=== PATIENT | female | born 1995 | race Caucasian/White ===

== ENCOUNTER 2021-11-24 22:10 | Observation (INO) | payer SELFPAY ==
[2021-11-24 22:10] VITALS: BMI 41.6
[2021-11-24 22:23] VITALS: BMI 41.5
[2021-11-24 23:00] VITALS: BP 142/91; PULSE 81; RESP 16; TEMP 36.6; O2SAT 98
[2021-11-24] MEDS: 0.9% Saline Lock 10 ML Syringe IV (23:14)
[2021-11-24] MEDS: 0.9% Normal Saline 1,000 ML 75 ML IV (23:15)
[2021-11-24] MEDS: Morphine 2 MG/ML Syringe IV (23:47)
[2021-11-25] VITALS (9 sets, daily range): BP systolic 103–139; BP diastolic 70–95; PULSE 69–93; RESP 14–16; TEMP 36.5–37; O2SAT 95–99
[2021-11-25] MEDS: Morphine 2 MG/ML Syringe IV ×3 (04:34→19:23)
--- NOTE | 2021-11-25 07:35 | HP.PCM_ITS ---
HPI - General General Date of Admission: 11/24/21 Chief Complaint: Right kidney stone HPI Narrative ZULAY BETTENCOURT, is a 26 F who presents 7 mm stone in the distal right ureter she was transferred from an outside emergency room was not been able to pass a stone with IV pain medicine she is now in better control of her pain and will plan for surgical intervention later today per availability of the operating room. [facility] Medical History (Updated 11/25/21 @ 07:[address] William Tenorio MD) Kidney stones no medical history Home Medications ciprofloxacin HCl 500 mg tablet (Cipro) 500 mg PO BID #6 tabs 11/25/21 [Rx Last Taken Unknown] oxycodone-acetaminophen 5 mg-325 mg tablet 1 tab PO Q6H PRN pain 7 days #14 tabs 11/25/21 [Rx Last Taken Unknown] Allergy/AdvReac Type Severity Reaction Status Date / Time No Known Allergies Allergy Verified 11/24/21 22:31 Family History (Updated 11/25/21 @ 07:[address] William Tenorio MD) Other Kidney stones no surgical history Social History Smoking Status: Never smoker ROS Constitutional Constitutional: Denies chills, fever(s) or malaise Eyes Eyes: Denies blurry vision or change in vision ENT HEENT: Reports none Cardiovascular Cardiovascular: Denies chest pain or palpitations Respiratory/Chest Respiratory/Chest: Denies cough or shortness of breath with exertion Gastrointestinal Gastrointestinal: Denies abdominal pain, constipation or diarrhea Musculoskeletal Musculoskeletal: Denies back pain, joint stiffness or joint swelling Integumentary Integumentary: Denies dry skin, jaundice, lesions or rash Neurologic Neurologic: Denies confusion, syncope or weakness Psychiatric Psychiatric: Reports none; Denies anxiety or depression Endocrine Endocrinology: Denies excessive sweating, fatigue or flushing Hematologic/Lymphatic Hematologic/Lymphatic: Denies anemia, easy bleeding or easy bruising Vital Signs Vital Signs Vital Signs: 11/24/21 22:10 11/24/21 23:00 11/25/21 04:30 Temperature 98 F 98.1 F Temperature Source Oral Oral Pulse Rate 81 93 Respiratory Rate 16 16 Respiratory Effort Normal Non-Labored Respiratory Depth Normal Respiratory Pattern Normal Blood Pressure 142/91 H 137/92 H Blood Pressure Mean 108 107 Blood Pressure Source Monitor Monitor Blood Pressure Position Semi-Fowlers Semi-Fowlers Blood Pressure Location Left Forearm Left Forearm Pulse Ox 98 99 Oxygen Delivery Method Room Air Room Air Room Air Weight Weight: 113.398 kg Body Mass Index (BMI) 41.5 Physical Exam Const alert and oriented x3 General Appearance: cooperative HEENT normocephalic, head/scalp atraumatic, EAC's normal and TM's normal bilaterally Eyes PERRL and EOMs intact bilaterally Pupil: sluggish Neck no lymphadenopathy, supple and no JVD General: trachea midline Lymph Lymphatic: no lymphadenopathy noted, lymphedema and lymphadenopathy Resp normal respiratory effort, normal air movement and clear to auscultation bilaterally Cardio regular rate, regular rhythm and peripheral pulses 2+ throughout GI soft to palpation, non-tender and non-distended Extremity normal capillary refill and no clubbing, cyanosis or edema General Extremity: no tenderness to palpation of joints or extremities Skin no rashes or lesions noted General Skin Exam: turgor normal Lesions: no lesions Rashes: no rashes Neuro CN's II-XII intact bilaterally Speech: speech normal Motor Exam: strength 5/5 throughout; Negative for general weakness Psych thought process normal, cooperative and affect normal Appearance: appropriate Results Medical Records Data Attestation: I reviewed the patient's medical records Lab / Micro Data Attestation: I reviewed the patient's lab results. Assessment & Plan Assessment/Plan (1) Right ureteral calculus: PLAN: Plan for right ureteroscopy laser lithotripsy of stone and removal of stone fragments possible stent on the right side called the operating room and asked for available time first available time I was told was after 5:00 today to follow other cases.
--- NOTE | 2021-11-25 11:48 | CASEMGMT ---
Social Work SW met w/pt and as pt is listed as self pay. SW provided resources including [facility] assist, Medicaid application and prescription assist programs. Pt and they have a fund they pay into and submit their medical bills to, and will get reimbursed. SW encouraged them, if they have any questions when they get their bill, to call the financial department. They both state understanding. SW remains available for any additional social service needs. ANSHUL Martinez
[2021-11-25] MEDS: 0.9% Normal Saline 1,000 ML 75 ML IV (12:31)
[2021-11-25] MEDS: 0.9% Saline Lock 10 ML Syringe IV (12:33)
[2021-11-25] MEDS: Cefazolin 2 GM in 0.9% Normal Saline 100 ML IV (20:55)
--- NOTE | 2021-11-25 21:27 | DCINST_ITS ---
Discharge Instructions Diet Discharge Diet: Light diet - advance as tolerated and Soft diet Activity Discharge Activity: Return to Normal Activity Dressing / Incision Call your doctor if you observe: Fever of 101 or Higher Follow Up Care Test Results: Test results from this visit will be discussed in further detail at your follow- up appointment, if applicable. Discharge Plan Admission Admit Date/Time: 11/24/21 22:10 Primary Reason for Your Visit: kidney stone Attending Provider: William Tenorio Primary Care Provider: Care Physician,No Primary Discharge Orders/Prescriptions Prescriptions: New oxycodone-acetaminophen 5-325 mg tablet 1 tab PO Q6H PRN (Reason: pain) 7 Days Qty: 14 0RF ciprofloxacin HCl [Cipro] 500 mg tablet 500 mg PO BID Qty: 6 0RF Referrals / Follow Up: William Tenorio MD [STAFF PHYSICIAN] - Care Physician,No Primary [Primary Care Provider] - Disposition Discharge Orders: Discharge Patient (Routine); Ordered 11/25/21 Ordered By: Dr. William Tenorio
--- NOTE | 2021-11-25 21:28 | OP.PCM_ITS ---
Report of Operation Date of Procedure: 11/25/21 Pre-Operative Diagnosis: Right ureteral calculi Post-Operative Diagnosis: The same Surgery/Procedure Performed:: Right ureteroscopy laser lithotripsy of stone and right retrograde pyelogram Description of Surgical Findings:: Patient was taken back to the operating room after smooth induction of general anesthesia she was placed in dorsolithotomy position the urethra vaginal area were prepped and draped in usual sterile fashion went into the bladder with a 21 [place] rigid cystourethroscope in the distal right ureter there was a stone that was impacted part of the stone was peeping out from the ureter I attempted to pass a wire past the stone but it was impossible because it was completely impacted so then I went in with a semirigid ureteroscope and I used a 400 ?m laser fiber and I was able to start lasering the stone fragments and then as I went into the ureter I continued the laser stone fragments and the stone fragments were then come out into the bladder and eventually the laser the stone was completely lasered and all the fragments and passed into the bladder I went up past the ureter the area of the ureter was fairly inflamed but I was able to get through the ureteroscope fairly easy tiny fragments have loaded up the ureter but these will come out on their own then we performed a retrograde pyelogram the ureter was draining quite easily with no obstruction cytocide not to place a stent the patient's bladder was drained anesthetic was reversed and she was taken back to the PACU in good condition no stent was placed she will follow-up in my office in about 4 weeks for a postop check and an ultrasound of the kidney. I went and spoke to her family regarding the procedure and the findings. Surgeon: William Tenorio Type of Anesthesia: General Drains: none Admit VTE Documentation VTE Present on Admission: No VTE Mechan Device Prophylaxis: SCD's VTE Pharm Prophylaxis ordered?: No
[2021-11-25] MEDS: Acetaminophen 500 MG Tablet PO (23:25)
== END 2021-11-25 23:45 | disposition home or self-care (01) ==
PROVIDERS: Admitting Provider Urology; Visit Provider Urology
PROC: 0TJ98ZZ Inspection of Ureter, Via Natural or Artificial Opening Endoscopic (ICD-10-PCS; CPT 52352; principal; 2021-11-25 18:25)
DX: N20.1 Calculus of ureter (principal)
CPT/HCPCS: 52353; 00918; 76000; 96361; 96374; 96376; 99218; J7030; A4216; C1726; C1769; G0378